=== PATIENT | male | born 1985 | race African-American/Black ===

== ENCOUNTER 2019-12-17 10:17 | Emergency (ER) | payer OTHER ==
[~2019-12-17] VITALS: Ht 177.8 cm; Wt 79.8 kg
[2019-12-17 11:00] VITALS: BP 136/73
== END 2019-12-17 11:01 | disposition home or self-care (01) ==
LOC: M.ERS 10:17
DX: S51.811D Laceration without foreign body of right forearm, subsequent encounter (principal); S61.512D Laceration without foreign body of left wrist, subsequent encounter; X58.XXXD Exposure to other specified factors, subsequent encounter